=== PATIENT | male | born 1995 | race Caucasian/White ===

== ENCOUNTER 2020-10-24 22:39 | Emergency (ER) | payer MEDICAID, SELFPAY ==
[2020-10-24 22:40] VITALS: BP 127/59; PULSE 64; RESP 18; TEMP 36.5; O2SAT 94; BMI 29.0
--- NOTE | 2020-10-24 22:56 | ED.DCSUM_ITS ---
History of Present Illness Chief Complaint: Upper Extremity Injury Informant: Patient Onset: Month(s) - 1 Context: Gradual Onset Timing: Continuous, Waxes and wanes Quality of Pain: Aching Location: right shoulder - subacromial and anterior Current Severity: Moderate Maximum Severity: Severe Worsened by: certain movements, especially overhead Relieved by: remaining still Associated Symptoms: Negative for: Parasthesia, Weakness, Loss of Funtion Narrative: [id number] healthy 25-year-old presenting with a month of right shoulder pain. 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 He states that he works out with weights sometimes and thinks that may have been the cause here. He sometimes does overhead press, push-ups, dumbbell curls. Past Medical History - Allergies and Home Meds Allergies/Adverse Reactions: Allergies No Known Allergies Allergy (Verified 10/24/20 22:39) Primary Care Physician: Care Physician,No Primary [Primary Care Provider] - Past Medical History: None Lives: With Family Smoking Status: Current every day smoker Review of Systems General: Denies: Chills, Fever, Sweats Musculoskeletal: Reports: Extremity Pain. Denies: Swelling Skin: Denies: Rash, Wounds Neurological: Denies: Headache, Weakness, Numbness Physical Exam Vital Signs/Narrative: Vital Signs Temp Pulse Resp BP Pulse Ox 10/24/20 22:40 97.7 F L 64 18 127/59 H 94 General: Well nourished, Well developed, - - NAD Head: Normocephalic, Atraumatic Extremeties: Mild tenderness right subacromial, and medial right shoulder ant eriorly. Negative drop sign without significant pain with supraspinatus. Positive significant discomfort reproduced with subscapularis isolated use. Other rotator cuff muscles do not reproduce significant discomfort. Negative Yergason. Full range of motion. No deformity or excessive warmth. No rash. Skin: Normal color, No rash Neurological: Alert, Oriented x3, Cranial nerves II-XII grossly intact, Normal Strength, Normal Sensation, Normal Gait Psychological: Normal affect, Normal Mood Diagnostic/Tx/Re-eval - Medical Decision Making Patient was advised that this is likely subscapularis strain and he probably has impingement syndrome/bursitis as well. Anti-inflammatories, avoiding overhead activities, and physical therapy is indicated at this time. He does not have a PCP so he was referred to 1, we discussed all of this and he is comfortable with that plan, he was given a dose of Naprosyn here prior to discharge. We discussed why x-rays are not going to be helpful here, and he is fine with that. I do not think he has calcific tendinitis since he has such good range of motion. ED Disposition - Plan for ED Patient: Disposition: Home or Assisted Living Diagnosis: Rotator cuff strain, Impingement syndrome of right shoulder Instructions: ED Shoulder Impingement Syndrome Referrals: Jean-Pierre Rubin MD [STAFF PHYSICIAN] - (call for appt) Additional Instructions: ibuprofen or naproxen/Aleve as needed for pain. Avoid overhead weight lifting, especially /shoulder press.
[2020-10-24 22:57] VITALS: BP 114/64; PULSE 78; RESP 16; TEMP 36.6; O2SAT 99
[2020-10-24] MEDS: Naproxen 500 MG Tablet PO (23:01)
== END 2020-10-24 23:15 | disposition home or self-care (01) ==
LOC: ED 23:19
PROVIDERS: Emergency Provider Emergency Medicine
DX: S46.011A Strain of muscle(s) and tendon(s) of the rotator cuff of right shoulder, initial encounter (principal); M75.41 Impingement syndrome of right shoulder; X58.XXXA Exposure to other specified factors, initial encounter; Y93.9 Activity, unspecified; Y92.9 Unspecified place or not applicable; Y99.9 Unspecified external cause status; F17.200 Nicotine dependence, unspecified, uncomplicated
CPT/HCPCS: 99283

== ENCOUNTER 2024-02-26 22:07 | Emergency (ER) | payer MEDICAID, SELFPAY ==
[2024-02-26 22:09] VITALS: BP 112/82; PULSE 68; RESP 18; TEMP 36.3; O2SAT 99; BMI 22.6
--- NOTE | 2024-02-26 22:30 | ED.VIS.LOWEX ---
HPI History of Present Illness Chief Complaint: Laceration Informant: patient Narrative Narrative: Patient sustained a laceration to the right knee. He states he was moving a bed frame, and the metal of the frame accidentally cut him in the knee. He does not have any pain, he did not even know what happened until he saw blood. He has had no issues walking or numbness distally. Tetanus [facility]ization: >10 [facility] Medical History no medical history no medical history Home Medications ?Medication ?Instructions ?Recorded ?Last Taken ?Type NK 10/24/20 Unknown History Allergy/AdvReac Type Severity Reaction Status Date / Time No Known Allergies Allergy Verified 02/26/24 22:24 Family History no significant family his Surgical History no surgical history Social History Smoking Status: Current every day smoker tobacco type: cigarettes ROS ROS ED Constitutional Constitutional ED: Denies chills or fever(s) Musculoskeletal Musculoskeletal: Denies extremity pain or neck pain Integumentary Reports laceration; Denies Abrasions or rash Neurologic Neurologic: Denies paresthesias or weakness EXAM Physical Exam Const Vital Signs: 02/26/24 22:09 Temperature 97.4 F L Temperature Source Temporal Pulse Rate 68 Respiratory Rate 18 Blood Pressure 112/82 H Blood Pressure Mean 92 Pulse Ox 99 Oxygen Delivery Method Room Air Positive well nourished and well developed General Appearance ED: well developed and NAD Neck full ROM and supple Back/Spine normal ROM and normal to inspection Extremity full ROM Extremity Narrative: Laceration over the right knee. No bone exposed to subcutaneous fat. Extensor mechanism intact, full range of motion of the knee, no bony tenderness. Neurovascular intact distally. Neuro oriented x3, no focal motor deficits and no sensory deficits noted Sensorium / Orientation: alert Psych mental status grossly normal and thought process normal Skin Skin Narrative: 3.5 cm curved clean appearing laceration anterior right knee, into subcutaneous tissue but not beyond. Rashes: no rashes MDM MDM MDM Narrative Medical decision making narrative: Laceration was repaired with horizontal mattress sutures see the procedure note. This should come out in about 2 weeks given that they are right over his anterior knee. His tetanus was updated. Given appropriate discharge instructions and dressed with bacitracin. Procedures Lacerations R knee: Length: 3.5 cm Depth: Sub Q Shape: curved Prep: Sterile Conditions, Chlorhexadine and - (H2O2 scrub) Laceration repair: Irrigated, Lidocaine (1%, 3.5cc), Local, Skin sutures and Wound explored (SQ fat only) Irrigated (ml): 120 Number of Sutures/Gabbs: 3 Suture Information: Ethilon, Horizontal, Mattress and 4-0 Discharge Plan Triage Chief Complaint: Laceration ED Provider: Lane Giraldo Dx/Rx/DC Orders Clinical Impression: Laceration of knee, right, Immunization, tetanus-diphtheria Instructions: Tdap Vaccine, ED Laceration Extremity Prescriptions: No Action NK Primary Care Provider: Care Physician,No Primary Referrals: Doctor,Your [Non-Staff] - (2 weeks for wound reevaluation and suture removal. Tell them they are horizontal mattresses, #3. You may see urgent care or your doctor, or the ER.) Print Language: Niuean Disposition Disposition: Home, Self Care
[2024-02-26] MEDS: Diphth,Pertuss(Acell),Tet Vac 0.5 ML Vial IM (22:38)
[2024-02-26] MEDS: Lidocaine 1% (20 ml mdv) 20 ML Vial INFILT (22:39)
[2024-02-26 23:21] VITALS: BP 121/77; PULSE 86; RESP 16; TEMP 37; O2SAT 99
== END 2024-02-26 23:26 | disposition home or self-care (01) ==
PROVIDERS: Emergency Provider Emergency Medicine; Visit Provider Emergency Medicine
DX: S81.011A Laceration without foreign body, right knee, initial encounter (principal); W26.8XXA Contact with other sharp object(s), not elsewhere classified, initial encounter; Z23 Encounter for immunization; F17.210 Nicotine dependence, cigarettes, uncomplicated
CPT/HCPCS: 12002; 90471; 90715; 99282